=== PATIENT | male | born 1960 | race Two or more races ===

== ENCOUNTER 2017-10-11 12:41 | Day surgery (SDC) | payer OTHER ==
[~2017-10-11] VITALS: Ht 170.2 cm; Wt 65.9 kg
--- NOTE | ~2017-10-11 | OP ---
PATIENT NAME: BRIGITTE REAVES MEDICAL RECORD: [id number] :60 LOCATION:[facility] ADMISSION DATE: SURGEON: LYUBOV JOYCE DO DATE OF OPERATION: 10/11/2017 PROCEDURE: EGD with hemostasis. INDICATIONS FOR PROCEDURE: Anemia, melena, generalized abdominal pain, and heartburn. SCOPE: Olympus video gastroscope. MEDICATIONS: Propofol 330 mg IV per anesthesia. ESTIMATED BLOOD LOSS: Less than 3 mL. COMPLICATIONS: None. FINDINGS: Informed consent was given. The patient was made comfortable with the above medication. After reaching an adequate level of sedation by slow IV push, the patient was placed on his left side. The endoscope was advanced under direct visualization through the mouth to the second portion of the duodenum. The upper, middle, and lower thirds of the esophagus appeared normal. At the GE junction, there was evidence of some mild esophagitis with a single linear superficial ulceration present. Appearances were consistent with reflux. The endoscope was advanced beyond the GE junction into the stomach and retroflexed to view the cardia, where a small sliding hiatal hernia was present. The mucosa of the stomach appeared normal other than 4 separate sites where small Dieulafoy lesions were present. Two of these were in the body of the stomach and 2 of these were in the antrum. All of these lesions were injected with 0.5 mL of 1:10,000 diluted epinephrine followed by gold probe cauterization. The 2 lesions in the antrum and one of the lesions in the body of the stomach showed good hemostasis with those 2 maneuvers alone. One lesion required Endoclipping as a final step for successful hemostasis. The endoscope was advanced beyond the pylorus into the duodenum, which appeared normal. The endoscope was then withdrawn from the patient. The patient tolerated the procedure well and there were no complications. IMPRESSIONS: 1. Mild esophagitis with a single superficial linear ulceration at the GE junction. 2. Four Dieulafoy lesions as described above with successful hemostasis achieved. PLAN AND RECOMMENDATIONS: 1. Discharge home when recovery parameters are met. 2. Monitor stool for changes. 3. Consider H. pylori stool antigen as biopsies were not taken today due to the bleeding that was encountered and hemostasis maneuvers being undertaken. 4. We will provide prescriptions for pantoprazole 40 mg daily times 6 weeks and Carafate suspension q.i.d. times 2 weeks to help heal these bleeding sites. 5. Repeat EGD as needed for ongoing anemia or melena or other symptoms. 6. 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 OPERATIVE REPORT [id number] BRIGITTE REAVES TRANSINT:[id number] Voice Confirmation ID: [id number] DOCUMENT ID: [id number] LYUBOV JOYCE DO at 1557 CC: [id number] DICTATION DATE: 10/11/17 1447 NUTRITION INTERNSHIP: 10/11/17 1457 [facility] 10/11/17 [id number] [place] [address]
[2017-10-11 13:02] LABS: BASOPHILS 0.6 % (0-2); EOSINOPHILS 2.8 % (0-7); HEMATOCRIT 35.2 % (42.0-54.0); HEMOGLOBIN 10.7 g/dL (13.5-17.5); IMMATURE GRANULOCYTES 0.6 % (0-5); LYMPHOCYTES 38.6 % (15-50); MCH 27.4 pg (26.0-34.0); MCHC 30.4 g/dL (31.0-37.0); MONOCYTES 14.9 % (2-11); NEUTROPHILS 42.5 % (40-80); PLATELET COUNT 201 10x3/uL (130-400); RBC 3.91 10x6/uL (4.20-6.10); RDW 14.8 % (11.5-14.5); WBC 3.6 10x3/uL (4.8-10.8)
[2017-10-11] MEDS ORDERED: GEMFIBROZIL600 MG (13:28)
[2017-10-11 13:29] LABS: ALBUMIN 4.1 g/dL (3.4-5.0); ANION GAP 14.4 mmol/L (8-16); BILIRUBIN - TOTAL 0.36 mg/dL (0.2-1.3); CALCIUM 9.3 mg/dL (8.5-10.1); CARBON DIOXIDE 26.2 mmol/L (21.0-32.0); CREATININE - SERUM 1.1 mg/dL (0.6-1.3); POTASSIUM - SERUM 4.6 mmol/L (3.5-5.1); PROTEIN - SERUM 8.7 g/dL (6.4-8.2)
[2017-10-11] MEDS ORDERED: ZETIA10 MG PO (13:29)
[2017-10-11] MEDS ORDERED: GENVOYA (13:29)
[2017-10-11 13:33] VITALS: BP 121/68; Ht 170.2 cm; Wt 65.9 kg
== END 2017-10-11 15:30 | disposition home or self-care (01) ==
LOC: D.OPS 12:41
PROVIDERS: Anesthesiology
DX: K22.10 Ulcer of esophagus without bleeding (principal); K22.8 Other specified diseases of esophagus; Z01.812 Encounter for preprocedural laboratory examination; D64.9 Anemia, unspecified

== ENCOUNTER → 2017-12-01 07:36 | Outpatient (CLI) | payer OTHER ==
[2017-10-11 13:33] VITALS: BMI 22.7
[~2017-12-01 07:36] MED LIST: GEMFIBROZIL600 MG; GENVOYA; ZETIA10 MG PO
== END | disposition home or self-care (01) ==
LOC: D.US 07:36
DX: R94.5 Abnormal results of liver function studies (principal)

== ENCOUNTER → 2018-11-20 15:27 | Outpatient (CLI) | payer OTHER ==
[2017-10-11 13:33] VITALS: BMI 22.7
== END | disposition home or self-care (01) ==
LOC: D.RT 15:27
PROVIDERS: ATTEND Pediatrics
DX: Z02.71 Encounter for disability determination (principal)

== ENCOUNTER 2019-01-03 13:07 | Emergency (ER) | payer OTHER ==
[~2019-01-03] VITALS: Ht 170.2 cm; Wt 65.9 kg
[2019-01-03 13:47] VITALS: Ht 170.2 cm; Wt 65.9 kg
[2019-01-03] MEDS ORDERED: VICTOZA0.6 MG/0.1 SQ (13:49)
[2019-01-03] MEDS ORDERED: HYDROCODON-ACE1 EA10 PO (15:47)
[2019-01-03 16:21] VITALS: BP 137/79
== END 2019-01-03 16:30 | disposition home or self-care (01) ==
LOC: D.ER 13:07
DX: S93.522A Sprain of metatarsophalangeal joint of left great toe, initial encounter (principal); W22.8XXA Striking against or struck by other objects, initial encounter; Y93.89 Activity, other specified; Y92.89 Other specified places as the place of occurrence of the external cause